=== PATIENT | male | born 1950 | race American Indian/Alaskan Native ===

== ENCOUNTER 2019-03-17 20:38 | Emergency (ER) | payer MEDICARE, OTHER ==
[2019-03-17 22:47] LABS: Hematocrit 30.6 % (35.5-45.6); Mean Corpuscular HGB Conc 33 % (32-34); Mean Corpuscular Volume 94 fl (84-94); Red Blood Count 3.24 M/mm3 (3.65-5.03); Red Cell Distribution Width 18.8 % (13.2-15.2)
[2019-03-17 22:51] LABS: Platelet Count 93 K/mm3 (140-440)
--- NOTE | 2019-03-17 22:56 | Emergency Department Report ---
ED General Adult HPI - General Chief complaint: Extremity Injury, Upper Stated complaint: BLEEDING FROM PORT Time Seen by Provider: 03/17/19 21:47 Source: patient, EMS Mode of arrival: Stretcher Limitations: No Limitations - History of Present Illness Initial comments: Patient to the emergency department due to bleeding from his AV fistula of his left forearm. Patient states that he took the bandage off of this fistula today and removed a scab that was on the fistula. Patient states as best as surgeon was aware of this scab on his fistula and had a surgery scheduled for next week. Patient arrives to the ED with a blood pressure cuff over the AV fistula with towels underneath. The patient is taking anticoagulant for A. fib -: Sudden Location: upper extremity Severity scale (0 -10): 0 Consistency: constant Improves with: none Worsens with: none Associated Symptoms: denies other symptoms Treatments Prior to Arrival: none - Related Data Home Medications Medication Instructions Recorded Confirmed Last Taken amLODIPine [Norvasc] 10 mg PO BID 06/29/15 10/28/15 1 Day Ago ~10/27/15 Acyclovir [Zovirax Tab] 400 mg PO QDAY 10/28/15 10/28/15 1 Day Ago ~10/27/15 Cyclobenzaprine [Flexeril] 10 mg PO QHS PRN 10/28/15 10/28/15 1 Day Ago ~10/27/15 Ondansetron [Zofran TAB] 4 mg PO Q8HR PRN 10/28/15 10/28/15 Unknown Sevelamer Carbonate [Renvela] 800 mg PO TID 10/28/15 10/28/15 1 Day Ago ~10/27/15 Sodium Bicarbonate 1,300 mg PO TID 10/28/15 10/28/15 1 Day Ago ~10/27/15 diphenhydrAMINE [Benadryl CAP] 25 mg PO BID PRN 10/28/15 10/28/15 1 Day Ago ~10/27/15 Previous Rx's Medication Instructions Recorded Last Taken Type levETIRAcetam [Keppra TAB] 500 mg PO QDAY #30 tablet 10/28/15 Unknown Rx Allergies Allergy/AdvReac Type Severity Reaction Status Date / Time prochlorperazine AdvReac Itching Verified 06/29/15 16:03 [From Compazine] prochlorperazine edisylate AdvReac Itching Verified 06/29/15 16:03 [From Compazine] prochlorperazine maleate AdvReac Itching Verified 06/29/15 16:03 [From Compazine] ED Review of Systems ROS: Stated complaint: BLEEDING FROM PORT Other details as noted in HPI Comment: All other systems reviewed and negative Constitutional: denies: chills, fever Eyes: denies: eye pain, eye discharge, vision change ENT: denies: ear pain, throat pain Respiratory: denies: cough, shortness of breath, wheezing Cardiovascular: denies: chest pain, palpitations Endocrine: no symptoms reported Gastrointestinal: denies: abdominal pain, nausea, diarrhea Genitourinary: denies: urgency, dysuria Musculoskeletal: denies: back pain, joint swelling, arthralgia Skin: denies: rash, lesions Neurological: denies: headache, weakness, paresthesias Psychiatric: denies: anxiety, depression Hematological/Lymphatic: denies: easy bleeding, easy bruising ED Past Medical Hx - Past Medical History Previous Medical History?: Yes Hx Hypertension: Yes Hx Renal Disease: Yes (Sat- Sat- Sat) Hx Seizures: Yes Additional medical history: cancer - Surgical History Past Surgical History?: Yes Additional Surgical History: Graft to left arm - Social History Smoking Status: Never Smoker Substance Use Type: None - Medications Home Medications: Home Medications Medication Instructions Recorded Confirmed Last Taken Type amLODIPine [Norvasc] 10 mg PO BID 06/29/15 10/28/15 1 Day Ago History ~10/27/15 Acyclovir [Zovirax Tab] 400 mg PO QDAY 10/28/15 10/28/15 1 Day Ago History ~10/27/15 Cyclobenzaprine [Flexeril] 10 mg PO QHS PRN 10/28/15 10/28/15 1 Day Ago History ~10/27/15 Ondansetron [Zofran TAB] 4 mg PO Q8HR PRN 10/28/15 10/28/15 Unknown History Sevelamer Carbonate [Renvela] 800 mg PO TID 10/28/15 10/28/15 1 Day Ago History ~10/27/15 Sodium Bicarbonate 1,300 mg PO TID 10/28/15 10/28/15 1 Day Ago History ~10/27/15 diphenhydrAMINE [Benadryl CAP] 25 mg PO BID PRN 10/28/15 10/28/15 1 Day Ago Hi story ~10/27/15 levETIRAcetam [Keppra TAB] 500 mg PO QDAY #30 tablet 10/28/15 Unknown Rx ED Physical Exam - General Limitations: No Limitations General appearance: alert, in no apparent distress - Head Head exam: Present: atraumatic, normocephalic - Eye Eye exam: Present: normal appearance, PERRL, EOMI - ENT ENT exam: Present: mucous membranes moist - Neck Neck exam: Present: normal inspection - Respiratory Respiratory exam: Present: normal lung sounds bilaterally. Absent: respiratory distress - Cardiovascular Cardiovascular Exam: Present: regular rate, normal rhythm. Absent: systolic murmur, diastolic murmur, rubs, gallop - GI/Abdominal GI/Abdominal exam: Present: soft, normal bowel sounds - Rectal Rectal exam: Present: deferred - Extremities Exam Extremities exam: Present: normal inspection, other (bleeding of the left AV fistula has resolved) - Back Exam Back exam: Present: normal inspection - Neurological Exam Neurological exam: Present: alert, oriented X3 - Psychiatric Psychiatric exam: Present: normal affect, normal mood - Skin Skin exam: Present: warm, dry, intact, normal color. Absent: rash ED Course Vital Signs 03/17/19 03/17/19 03/17/19 20:50 21:05 23:00 Temperature 98.2 F Pulse Rate 75 73 Respiratory 18 18 17 Rate Blood Pressure 185/93 Blood Pressure 185/93 169/86 [Right] O2 Sat by Pulse 99 99 99 Oximetry ED Medical Decision Making - Lab Data Result diagrams: 03/17/19 22:14 03/17/19 22:14 Lab Results 03/17/19 03/17/19 03/17/19 Range/Units 22:14 22:14 22:14 WBC 5.8 (4.5-11.0) K/mm3 RBC 3.24 L (3.65-5.03) M/mm3 Hgb 10.0 L (11.8-15.2) gm/dl Hct 30.6 L (35.5-45.6) % MCV 94 (84-94) fl MCH 31 (28-32) pg MCHC 33 (32-34) % RDW 18.8 H (13.2-15.2) % Plt Count 93 L (140-440) K/mm3 Add Manual Diff Complete Total Counted 100 Seg Neuts % (Manual) 70.0 (40.0-70.0) % Band Neutrophils % 0 % Lymphocytes % (Manual) 13.0 L (13.4-35.0) % Reactive Lymphs % (Man) 0 % Monocytes % (Manual) 9.0 H (0.0-7.3) % Eosinophils % (Manual) 7.0 H (0.0-4.3) % Basophils % (Manual) 1.0 (0.0-1.8) % Metamyelocytes % 0 % Myelocytes % 0 % Promyelocytes % 0 % Blast Cells % 0 % Nucleated RBC % Not Reportable Seg Neutrophils # Man 4.1 (1.8-7.7) K/mm3 Band Neutrophils # 0.0 K/mm3 Lymphocytes # (Manual) 0.8 L (1.2-5.4) K/mm3 Abs React Lymphs (Man) 0.0 K/mm3 Monocytes # (Manual) 0.5 (0.0-0.8) K/mm3 Eosinophils # (Manual) 0.4 (0.0-0.4) K/mm3 Basophils # (Manual) 0.1 (0.0-0.1) K/mm3 Metamyelocytes # 0.0 K/mm3 Myelocytes # 0.0 K/mm3 Promyelocytes # 0.0 K/mm3 Blast Cells # 0.0 K/mm3 WBC Morphology Not Reportable Hypersegmented Neuts Not Reportable Hyposegmented Neuts Not Reportable Hypogranular Neuts Not Reportable Smudge Cells Not Reportable Toxic Granulation Not Reportable Toxic Vacuolation Not Reportable Dohle Bodies Not Reportable Pelger-Huet Anomaly Not Reportable Clair Rods Not Reportable Platelet Estimate Not Reportable Clumped Platelets Not Reportable Plt Clumps, EDTA Not Reportable Large Platelets Not Reportable Giant Platelets Not Reportable Platelet Satelliting Not Reportable Plt Morphology Comment Not Reportable RBC Morphology Normal Dimorphic RBCs Not Reportable Polychromasia Not Reportable Hypochromasia Not Reportable Poikilocytosis Not Reportable Anisocytosis Not Reportable Microcytosis Not Reportable Macrocytosis Not Reportable Spherocytes Not Reportable Pappenheimer Bodies Not Reportable Sickle Cells Not Reportable Target Cells Not Reportable Tear Drop Cells Not Reportable Ovalocytes Not Reportable Helmet Cells Not Reportable [place] Bodies Not Reportable [place] Rings Not Reportable Angi Cells Not Reportable Bite Cells Not Reportable Crenated Cell Not Reportable Elliptocytes Not Reportable Acanthocytes (Spur) Not Reportable Rouleaux Not Reportable Hemoglobin C Crystals Not Reportable Schistocytes Not Reportable Malaria parasites Not Reportable Jose Bodies Not Reportable Hem Pathologist Commnt No PT 15.9 H (12.2-14.9) Sec. INR 1.30 H (0.87-1.13) APTT 33.8 (24.2-36.6) Sec. Sodium 138 (137-145) mmol/L Potassium 4.0 (3.6-5.0) mmol/L Chloride 94.8 L (98-107) mmol/L Carbon Dioxide 28 (22-30) mmol/L Anion Gap 19 mmol/L BUN 43 H (9-20) mg/dL Creatinine 7.1 H (0.8-1.5) mg/dL Estimated GFR 9 ml/min BUN/Creatinine Ratio 6 % Glucose 112 H (75-100) mg/dL Calcium 8.8 (8.4-10.2) mg/dL Total Bilirubin 1.20 (0.1-1.2) mg/dL AST 17 (5-40) units/L ALT 12 (7-56) units/L Alkaline Phosphatase 108 (35-129) units/L Total Protein 6.5 (6.3-8.2) g/dL Albumin 4.0 (3.9-5) g/dL Albumin/Globulin Ratio 1.6 % - Medical Decision Making ABD pad was added and Coban wrap to the left AV fistula The patient states he will follow up with his Vascular Surgeon tomorrow Critical care attestation.: If time is entered above; I have spent that time in minutes in the direct care of this critically ill patient, excluding procedure time. ED Disposition Clinical Impression: Hemorrhage of arteriovenous fistula Disposition: DC-01 TO HOME OR SELFCARE Is pt being admited?: No Does the pt Need Aspirin: No Condition: Stable Additional Instructions: Return to the ED if there is anymore bleeding Referrals: YELENA BERMUDEZ MD [Primary Care Provider] - 3-5 Days DRE CABALLERO MD [Staff Physician] - 3-5 Days Time of Disposition: 23:27
[2019-03-17 22:58] LABS: Partial Thromboplastin Time 33.8 Sec. (24.2-36.6)
[2019-03-17 23:04] LABS: INR 1.3 (0.87-1.13)
[2019-03-17 23:06] LABS: Calcium 8.8 mg/dL (8.4-10.2)
[2019-03-17 23:15] VITALS: BP 169/86
[2019-03-17 23:24] LABS: RBC Morphology Normal; Total Cells Counted 100
== END 2019-03-17 23:56 | disposition home or self-care (01) ==
LOC: ED 20:38
DX: T82.838A Hemorrhage due to vascular prosthetic devices, implants and grafts, initial encounter (principal); I10 Essential (primary) hypertension; Z98.890 Other specified postprocedural states; Z79.899 Other long term (current) drug therapy; Z88.8 Allergy status to other drugs, medicaments and biological substances; Y69 Unspecified misadventure during surgical and medical care; Y92.89 Other specified places as the place of occurrence of the external cause
CPT/HCPCS: 36415; 80053; 85007; 85025; 85610; 85730; 99284